=== PATIENT | male | born 1985 | race Caucasian/White ===

== ENCOUNTER 2018-10-19 12:09 | Emergency (ER) | payer OTHER ==
[~2018-10-19] VITALS: Ht 172.7 cm; Wt 85.3 kg
[2018-10-19] MEDS ORDERED: CLIN300C8 PO (12:32)
[2018-10-19] MEDS ORDERED: PRED20TA PO (12:32)
--- NOTE | 2018-10-19 12:32 | PHYS DOC ---
Adult General Chief Complaint Chief Complaint: INSECT BITE HPI HPI 33-year-old male was at a training exercise on a field a couple of days ago. He's had some bug bites since that time primarily on his arm head and face. He's been scratching at these now they are draining and red. He's been putting antibi otic cream on with no success.[] Review of Systems Review of Systems Constitutional: Denies fever or chills [] Eyes: Periorbital swelling redness right eye[] HENT: Denies nasal congestion or sore throat [] : Denies dysuria or hematuria [] Musculoskeletal: Denies back pain or joint pain [] Integument: Per history of present illness[] All other systems were reviewed and found to be within normal limits, except as documented in this note. Physical Exam Physical Exam Constitutional: Well developed, well nourished, no acute distress, non-toxic appearance. [] HENT: Normocephalic, atraumatic, bilateral external ears normal, oropharynx moist, no oral exudates, nose normal. [] Eyes: PERRLA, EOMI, conjunctiva normal, no discharge. [] Neck: Normal range of motion, no tenderness, supple, no stridor. [] Cardiovascular:Heart rate regular rhythm, no murmur [] Lungs & Thorax: Bilateral breath sounds clear to auscultation [] Abdomen: Bowel sounds normal, soft, no tenderness, no masses, no pulsatile masses. [] Skin: Multiple papular lesions on both arms some of which have significant surrounding erythema there is a couple on the left arm that have a small necrot ic center[] Back: No tenderness, no CVA tenderness. [] Extremities: No tenderness, no cyanosis, no clubbing, ROM intact, no edema. [] Neurologic: Alert and oriented X 3, normal motor function, normal sensory function, no focal deficits noted. [] Psychologic anxious[] EKG EKG [] Radiology/Procedures Radiology/Procedures [] Course & Med Decision Making Course & Med Decision Making Pertinent Labs and Imaging studies reviewed. (See chart for details) [] Dragon Disclaimer Dragon Disclaimer This electronic medical record was generated, in whole or in part, using a voice recognition dictation system. Departure Departure: Impression: Primary Impression: Insect bites Additional Impression: Cellulitis Disposition: 01 HOME, SELF-CARE Condition: STABLE Patient Instructions: Cellulitis, Insect Bite Additional Instructions: Take medication as directed. Return to the emergency department with any new or concerning symptoms Scripts Prednisone (PREDNISONE) 20 Mg Tablet 3 TAB PO QD for rash, #15 TAB Prov: HAN ISBELL DO 10/19/18 Clindamycin Hcl (CLINDAMYCIN HCL) 300 Mg Capsule 1 CAP PO TID for infection, #30 CAP Prov: HAN ISBELL DO 10/19/18 Problem Qualifiers Primary Impression: Insect bites Encounter type: initial encounter Site of insect bite: unspecified site Qualified Codes: W57.XXXA - Bitten or stung by nonvenomous insect and other nonvenomous arthropods, initial encounter Additional Impression: Cellulitis Site of cellulitis: unspecified site Qualified Codes: L03.90 - Cellulitis, unspecified HAN ISBELL DO Oct 19, 2018 12:32
[2018-10-19] MEDS ORDERED: CLINDAMYCIN HCL 150 MG CAPSULE PO ONE (13:00)
[2018-10-19] MEDS ORDERED: methylPREDNISolone ACETATE 80 MG/ML VIAL. IM ONE (13:00)
[2018-10-19 13:13] VITALS: BP 147/100
== END 2018-10-19 12:55 | disposition home or self-care (01) ==
LOC: ER 12:09
DX: S40.862A Insect bite (nonvenomous) of left upper arm, initial encounter (principal); S40.861A Insect bite (nonvenomous) of right upper arm, initial encounter; L03.114 Cellulitis of left upper limb; H57.89 Other specified disorders of eye and adnexa; W57.XXXA Bitten or stung by nonvenomous insect and other nonvenomous arthropods, initial encounter; Y93.89 Activity, other specified; Y92.89 Other specified places as the place of occurrence of the external cause; Y99.8 Other external cause status
CPT/HCPCS: 96372; 99283; J1040

== ENCOUNTER 2018-11-26 08:46 | Emergency (ER) | payer OTHER ==
[~2018-11-26] VITALS: Ht 172.7 cm; Wt 87.9 kg
[~2018-11-26 08:46] MED LIST: CLIN300C8 PO; PRED20TA PO
[2018-11-26 08:55] VITALS: BP 148/104
--- NOTE | 2018-11-26 09:40 | RAD ---
Examination: FACIAL BONES 3+V History: Hit in the face with a soccer ball. Comparison/Correlation: None Findings: Total of 4 images of the visualized bones were obtained. Bony structures are intact. Soft tissues are grossly unremarkable. No fluid levels within paranasal sinuses. No fracture. Impression: No suspicious process. Electronically signed by: Dagoberto Ramirez MD (11/26/2018 9:37 AM) [id number]
--- NOTE | 2018-11-26 09:57 | PHYS DOC ---
Past History Past Medical History: Depression, Hypertension Past Surgical History: Tonsillectomy, Other Alcohol Use: Occasionally Drug Use: None Adult General Chief Complaint Chief Complaint: FACE PAIN HPI HPI 33-year-old male presents with concern for nasal fracture. 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 He had nasal pain. It appeared to his colleagues that the nose was deviated to the left, so the patient went home. He did not have bleeding. The pain is mild. While he was at home, he looked in the mirror noticed he had swelling worse on the right side and it appeared that his nose is deviated to the left. The patient has history of deviated septum, but no previous nasal fractures. He wants to make sure it does not broken. He denies any other injuries or complaints. Review of Systems Review of Systems Constitutional: Denies fever or chills [] Eyes: Denies change in visual acuity, redness, or eye pain [] HENT: Nose trauma[] Respiratory: Denies cough or shortness of breath [] Cardiovascular: No additional information not addressed in HPI [] GI: Denies abdominal pain, nausea, vomiting, bloody stools or diarrhea [] : Denies dysuria or hematuria [] Musculoskeletal: Denies back pain or joint pain [] Integument: Denies rash or skin lesions [] Neurologic: Denies headache, focal weakness or sensory changes [] Endocrine: Denies polyuria or polydipsia [] All other systems were reviewed and found to be within normal limits, except as documented in this note. Allergies Allergies Allergies Coded Allergies Type Severity Reaction Last Updated Verified No Known Drug Allergies 11/26/18 No Physical Exam Physical Exam Constitutional: Well developed, well nourished, no acute distress, non-toxic appearance. [] HENT: Normocephalic, atraumatic, bilateral external ears normal, oropharynx moist, no oral exudates, nose swollen and appears to be deviated to the left. No ecchymosis or signs of bleeding. No septal hematoma.[] Eyes: PERRLA, EOMI, conjunctiva normal, no discharge. [] Neck: Normal range of motion, no tenderness, supple, no stridor. [] Cardiovascular:Heart rate regular rhythm, no murmur [] Lungs & Thorax: Bilateral breath sounds clear to auscultation [] Abdomen: Bowel sounds normal, soft, no tenderness, no masses, no pulsatile masses. [] Skin: Warm, dry, no erythema, no rash. [] Back: No tenderness, no CVA tenderness. [] Extremities: No tenderness, no cyanosis, no clubbing, ROM intact, no edema. [] Neurologic: Alert and oriented X 3, normal motor function, normal sensory function, no focal deficits noted. [] Psychologic: Affect normal, judgement normal, mood normal. [] Current Patient Data Vital Signs Vital Signs Date Time Temp Pulse Resp B/P (MAP) Pulse Ox O2 Delivery O2 Flow Rate FiO2 11/26/18 08:55 97.8 100 19 98 Room Air EKG EKG [] Radiology/Procedures Radiology/Procedures [] Impressions: Examination: FACIAL BONES 3+V History: Hit in the face with a soccer ball. Comparison/Correlation: None Findings: Total of 4 images of the visualized bones were obtained. Bony structures are intact. Soft tissues are grossly unremarkable. No fluid levels within paranasal sinuses. No fracture. Impression: No suspicious process. Electronically signed by: Jovita Qureshi MD (11/26/2018 9:37 AM) [id number] DICTATED AND SIGNED BY: JOVITA QURESHI MD DATE: 11/26/18 0937 CC: SUJIT POSADA DO; EFRAÍN TRACY PA-C ~ Course & Med Decision Making Course & Med Decision Making Pertinent Labs and Imaging studies reviewed. (See chart for details) The patient does not have a facial fracture. He does not have a septal hematoma. He has some swelling of the right nasal turbinates. I believe this swelling on the right side is sweats making his nose appear deviated to the left. He is not having significant pain. I have advised supportive care. He is stable for discharge at this time. [] Dragon Disclaimer Dragon Disclaimer This electronic medical record was generated, in whole or in part, using a voice recognition dictation system. Departure Departure: Impression: Primary Impression: Contusion of nose, initial encounter Disposition: 01 HOME, SELF-CARE Condition: STABLE Referrals: EFRAÍN TRACY PA-C (PCP) Patient Instructions: Facial or Scalp Contusion, [id number] SUJIT POSADA DO Nov 26, 2018 09:57
== END 2018-11-26 10:05 | disposition home or self-care (01) ==
LOC: ER 08:46
DX: S00.33XA Contusion of nose, initial encounter (principal); I10 Essential (primary) hypertension; W51.XXXA Accidental striking against or bumped into by another person, initial encounter; Y93.66 Activity, soccer; Y92.89 Other specified places as the place of occurrence of the external cause; Y99.8 Other external cause status
CPT/HCPCS: 70150; 99284

== ENCOUNTER 2021-09-20 09:33 | Emergency (ER) | payer OTHER ==
[~2021-09-20] VITALS: Ht 172.7 cm; Wt 86.3 kg
[~2021-09-20 09:33] MED LIST changes: +CLIN-95 PO; -CLIN300C8 PO
[2021-09-20 09:41] VITALS: BP 151/109
--- NOTE | 2021-09-20 10:03 | PHYS DOC ---
Past History Past Medical History: Depression, Hypertension Past Surgical History: No Surgical History Alcohol Use: Occasionally Drug Use: None General Adult EDM: Chief Complaint: EARACHE/EAR PAIN HPI: HPI: 35-year-old male presents with bilateral cerumen impaction. He states that he feels like he has obstruction of both ears. It is bothering his balance a little bit any decreased hearing. He states he has had this in the past and had to have his ears flushed out. Its been few years since he has had this done. He has no other complaints this time. Review of Systems: Review of Systems: Constitutional: Denies fever or chills Eyes: Denies change in visual acuity HENT: Bilateral ear pain, impacted wax Respiratory: Denies cough or shortness of breath Cardiovascular: Denies chest pain or edema GI: Denies abdominal pain, nausea, vomiting, bloody stools or diarrhea : Denies dysuria Musculoskeletal: Denies back pain or joint pain Integument: Denies rash Neurologic: Denies headache, focal weakness or sensory changes Endocrine: Denies polyuria or polydipsia Lymphatic: Denies swollen glands Psychiatric: Denies depression or anxiety Allergies: Allergies: Allergies Coded Allergies Type Severity Reaction Last Updated Verified No Known Drug Allergies 11/26/18 No Physical Exam: PE: Constitutional: Well developed, well nourished, no acute distress, non-toxic appearance. [] HENT: Normocephalic, atraumatic, bilateral external ears normal, oropharynx moist, no oral exudates, nose normal. Bilateral ear canals obstructed with impacted cerumen, no visualization of the eardrum. [] Eyes: PERRLA, EOMI, conjunctiva normal, no discharge. [] Neck: Normal range of motion, no tenderness, supple, no stridor. [] Cardiovascular:Heart rate regular rhythm, no murmur [] Lungs & Thorax: Bilateral breath sounds clear to auscultation [] Abdomen: Bowel sounds normal, soft, no tenderness, no masses, no pulsatile mass es. [] Skin: Warm, dry, no erythema, no rash. [] Back: No tenderness, no CVA tenderness. [] Extremities: No tenderness, no cyanosis, no clubbing, ROM intact, no edema. [] Neurologic: Alert and oriented X 3, normal motor function, normal sensory function, no focal deficits noted. [] Psychologic: Affect normal, judgement normal, mood normal. [] Current Patient Data: Vital Signs: Vital Signs Date Time Temp Pulse Resp B/P (MAP) Pulse Ox O2 Delivery O2 Flow Rate FiO2 09/20/21 09:41 97.7 98 20 151/109 (123) 99 Room Air EKG: EKG: [] Radiology/Procedures: Radiology/Procedures: [] Heart Score: C/O Chest Pain: N/A Risk Factors: Risk Factors: DM, Current or recent (<one month) smoker, HTN, HLP, family history of CAD, obesity. Risk Scores: Score 0 - 3: 2.5% MACE over next 6 weeks - Discharge Home Score 4 - 6: 20.3% MACE over next 6 weeks - Admit for Clinical Observation Score 7 - 10: 72.7% MACE over next 6 weeks - Early Invasive Strategies Course & Med Decision Making: Course & Med Decision Making Pertinent Labs and Imaging studies reviewed. (See chart for details) I attempted manual extraction of the patient's earwax with a lighted ear loop. The patient did not tolerate this. We attempted removal with irrigation and suction. Irrigation helped significantly. We were able to completely clear the right ear. A significant amount came out of the left ear but there was still some left up against the eardrum. This will have to work its way out or will need to be removed by ENT with more specialized equipment due to its effect on the eardrum. The patient is stable for discharge at this time. [] Dragon Disclaimer: Dragon Disclaimer: This electronic medical record was generated, in whole or in part, using a voice recognition dictation system. Departure Departure: Impression: Primary Impression: Impacted cerumen of both ears Disposition: HOME / SELF CARE / HOMELESS Condition: STABLE Referrals: EFRAÍN TRACY PA-C (PCP) Patient Instructions: Cerumen Impaction SUJIT POSADA DO September 20, 2021 10:03
== END 2021-09-20 10:53 | disposition home or self-care (01) ==
LOC: ER 09:33
DX: H61.23 Impacted cerumen, bilateral (principal); I10 Essential (primary) hypertension
CPT/HCPCS: 69209; 99282